=== PATIENT | male | born 1985 | race Caucasian/White ===

== ENCOUNTER 2021-09-14 16:20 | Inpatient (IN) | payer MEDICAID ==
[~2021-09-14] VITALS: Ht 170.2 cm; Wt 64.9 kg
[2021-09-14] MEDS ORDERED: ONDANSETRON HCL/PF 4 MG/2 ML VIAL ONE (16:48)
[2021-09-14] MEDS ORDERED: KETOROLAC TROMETHAMINE 15 MG/ML VIAL ONE (16:48)
[2021-09-14] MEDS ORDERED: ACETAMINOPHEN ES 500 MG TABLET ONE (16:48)
--- NOTE | 2021-09-14 16:53 | NUR ---
MOVE SHEET SUBMITTED AND CALLED FOR MS BED.
[2021-09-14] MEDS ORDERED: IV NS 0.9% 1,000 ML BAG IV ONE (17:00)
[2021-09-14] MEDS ORDERED: KETOROLAC TROMETHAMINE INJ 30 MG/ML VIAL IV ONE (17:00)
[2021-09-14] MEDS ORDERED: ACETAMINOPHEN ES 500 MG TABLET PO ONE (17:00)
[2021-09-14] MEDS ORDERED: PIPERACILLIN /TAZOBACTAM 3.375 G in IV D5W 50 ML IV ONE (17:00)
[2021-09-14] MEDS ORDERED: VANCOMYCIN 1 GM in IV D5W 250 ML IV ONE (17:00)
[2021-09-14] MEDS ORDERED: ONDANSETRON HCL/PF 4 MG/2 ML VIAL IVP ONE (17:00)
--- NOTE | 2021-09-14 17:00 | NUR ---
US AT BEDSIDE
--- NOTE | 2021-09-14 17:05 | NUR ---
COVID SWAB DONE AND SENT TO LAB
[2021-09-14 17:11] LABS: BASOPHILS % (AUTO) 0.1 % (0.0-2.0); HEMATOCRIT 34 % (39-51); HEMOGLOBIN 10.7 g/dL (13.5-17.5); LYMPHOCYTES # (AUTO) 0.8 K/uL (0.8-4.8); LYMPHOCYTES % (AUTO) 4.3 % (20.0-44.0); MEAN CORPUSCULAR HGB CONC 31 g/dl (31.0-36.0); MEAN CORPUSCULAR VOLUME 77 fL (80-96); MONOCYTES # (AUTO) 2.1 K/uL (0.1-1.30); MONOCYTES % (AUTO) 10.8 % (2.0-12.0); NEUTROPHILS # (AUTO) 16.7 K/uL (1.8-8.9); NEUTROPHILS % (AUTO) 84.8 % (43.0-81.0); PLATELET COUNT (AUTO) 348 K/uL (150-450); RED BLOOD CELL COUNT(AUTO) 4.48 MIL/uL (4.5-6.0); WHITE BLOOD COUNT (AUTO) 19.7 K/uL (4.3-11.0)
[2021-09-14 18:20] LABS: ALANINE AMINOTRANSFERASE 10 U/L (12-78); ALBUMIN 2.9 g/dL (3.4-5.0); ALKALINE PHOSPHATASE 107 U/L (46-116); ASPARTATE AMINOTRANSFERASE 13 U/L (15-37); BILIRUBIN,TOTAL 0.5 mg/dL (0.2-1.0); TOTAL PROTEIN, SERUM 8.4 g/dL (6.4-8.2)
[2021-09-14 18:54] LABS: BILIRUBIN,DIRECT 0.2 mg/dL (0.0-0.2)
[2021-09-14 19:04] LABS: CALCIUM, SERUM 8.8 mg/dL (8.5-10.1); CARBON DIOXIDE 21 mmol/L (21-32); CHLORIDE 93 mmol/L (98-107); CREATININE 0.9 mg/dL (0.6-1.3); GLUCOSE 112 mg/dL (74-106); POTASSIUM 3.8 mmol/L (3.5-5.1); SODIUM SERUM 127 mmol/L (136-145); UREA NITROGEN, BLOOD 14 mg/dL (7-18)
--- NOTE | 2021-09-14 19:12 | NUR ---
[facility] CALLED FILM PROCESSING SHIFT SUPERVISOR PAGED.
[2021-09-14] MEDS ORDERED: MAG HYDROX/AL HYDROX/SIMETH 30 ML UDC PO PRN (20:00)
[2021-09-14] MEDS ORDERED: MAGNESIUM HYDROXIDE 30 ML UDC PO PRN (20:00)
--- NOTE | 2021-09-14 20:27 | NUR ---
REPORT GIVEN MAYI VO FOR REID
--- NOTE | 2021-09-14 20:42 | NUR ---
PT TO UNIT ON GURNEY WITH EMT AT BEDSIDE ON STABLE CONDITION. NAD NOTED
--- NOTE | 2021-09-14 20:50 | NUR ---
MS RN RECIEVING NOTE PATIENT RECEIVED FROM ER VIA [facility]. PATIENT WAS ABLE TO AMBULATE FROM [facility] TO ASSIGNED BED. A/OX4. NO S/S OF DISTRESS, BREATHING UNLABORED ON RM AIR. RAC #18 INTACT AND PATENT. PATIENT STABLE. VS: BP 135/79; HR 84; T 98.7; O2 100%; R 18. PAIN NOTED 7/10. MORPHINE WILL BE GIVEN PER MD ORDER. ORIENTED TO RM AND UNIT; GIVEN CALL SINGLETARY AND INSTRUCTED ON USE; BELONGINGS ACCOUNTED FOR AND LOGGED INTO CHART. SAFETY MEASURES IN PLACE: BED AT LOWEST LEVEL, RAILS UP X3, CALL SINGLETARY WITHIN REACH. WILL CONTINUE TO MONITOR PATIENT.
[2021-09-14] MEDS: MORPHINE SULFATE INJ 2 MG/ML DISP.SYRIN IV PRN (21:32)
[2021-09-14] MEDS: ENOXAPARIN SODIUM 40 MG/0.4 ML DISP.SYRIN SQ SCH (21:34)
[2021-09-14 22:00] VITALS: BP 135/79
[2021-09-14] MEDS ORDERED: ZOLPIDEM TARTRATE 5 MG TABLET PO PRN (22:00)
[2021-09-14] MEDS: IV NS 0.9% 1,000 ML IV PRN (22:53)
[2021-09-15] MEDS: ZOSYN IVPB 3.375 G in IV D5W 50ml IV SCH ×5 (00:11→23:20)
[2021-09-15] MEDS: ACETAMINOPHEN 325 MG TABLET PO PRN ×3 (00:20→15:08)
[2021-09-15] MEDS: VANCOMYCIN 1 GM in IV D5W 250ml IV SCH ×3 (02:22→18:38)
--- NOTE | 2021-09-15 02:31 | NUR ---
RN NOTE PATIENT HAD A TEMP OF 103.0 @0019. PATIENT INITIALLY DID NOT HAVE AN ELEVATED/ABNORMAL TEMP UPON ARRIVAL TO THE UNIT. PATIENT HAD STATED EARLIER THAT HE WAS COLD AND WANTED SEVERAL WARM BLANKETS AND THE HEAT ON. THEREFORE, AT 0019 I REMOVED SOME OF THE BLANKETS, TURNED OFF THE HEAT, AND GAVE HIM TYLENOL PER eMAR ORDER. AT 0122 PATIENT'S TEMP DROPPED TO 102.2. I PLACED ICE PACKS UNDER EACH ARM. AT 0228 HIS TEMP WAS 99.5. PATIENT DOES HAVE CELLULITIS AND IS RECEIVING ANTIBIOTICS (ZOSYN & VANCO). PATIENT IS STABLE AND COMFORTABLE. WILL CONTINUE TO MONITOR PATIENT.
--- NOTE | 2021-09-15 03:35 | NUR ---
RN NOTE PATIENT'S TEMP RE-CHECKED AGAIN. PATIENT'S CURRENT TEMP IS 98.6. PATIENT COMFORTABLE AND STABLE; WILL CONTINUE TO MONITOR PATIENT.
[2021-09-15] MEDS: MORPHINE SULFATE INJ 2 MG/ML DISP.SYRIN IV PRN ×4 (06:34→20:56)
--- NOTE | 2021-09-15 06:45 | NUR ---
MS RN CLOSING NOTE PATIENT IS AWAKE IN BED. A/OX4. NO S/S OF DISTRESS, BREATHING W/O DIFFICULTY ON RM AIR. RAC #18 INTACT AND PATENT W/ NS 75ML/HR. ALL PAIN NEEDS ATTENDED TO BY MD ORDER. SAFETY MEASURES IN PLACE: BED AT LOWEST POSITION, LOCKED, RAILS UP X3, CALL SINGLETARY WITHIN REACH. WILL ENDORSE TO NEXT SHIFT FOR REID.
[2021-09-15 07:26] LABS: BASOPHILS # (AUTO) 0.1 K/uL (0.0-0.2); BASOPHILS % (AUTO) 0.3 % (0.0-2.0); HEMATOCRIT 32 % (39-51); HEMOGLOBIN 10.1 g/dL (13.5-17.5); LYMPHOCYTES # (AUTO) 0.9 K/uL (0.8-4.8); LYMPHOCYTES % (AUTO) 4.8 % (20.0-44.0); MEAN CORPUSCULAR HGB CONC 31 g/dl (31.0-36.0); MEAN CORPUSCULAR VOLUME 76 fL (80-96); MONOCYTES % (AUTO) 10.3 % (2.0-12.0); NEUTROPHILS # (AUTO) 16.3 K/uL (1.8-8.9); NEUTROPHILS % (AUTO) 84.6 % (43.0-81.0); PLATELET COUNT (AUTO) 308 K/uL (150-450); RED BLOOD CELL COUNT(AUTO) 4.24 MIL/uL (4.5-6.0); WHITE BLOOD COUNT (AUTO) 19.2 K/uL (4.3-11.0)
--- NOTE | 2021-09-15 07:30 | NUR ---
RN OPENING NOTES RECEIVED PATIENT IN BED, AWAKE, A/O X4, VERBALLY RESPONSIVE. NI SIGNS OF ACUTE DISTRESS NOTED. ON ROOM AIR, NO SOB NOTED, BREATHING EVEN AND UNLABORED. NOTED WITH IV ACCESS ON RIGHT AC #18G, INTACT AND PATENT WITH NS @75ML/HR RUNNING. SAFETY MEASURES IN PLACE. BED LOCKED AND IN LOWEST POSITION, SR UP, CALL LIGHT AND TABLE PLACED WITHIN EASY REACH. WILL CONTINUE TO MONITOR PATIENT.
[2021-09-15 07:50] LABS: ALANINE AMINOTRANSFERASE < 6 U/L (12-78); ALBUMIN 2.2 g/dL (3.4-5.0); ALKALINE PHOSPHATASE 98 U/L (46-116); ASPARTATE AMINOTRANSFERASE 7 U/L (15-37); BILIRUBIN,TOTAL 0.5 mg/dL (0.2-1.0); CARBON DIOXIDE 21 mmol/L (21-32); CHLORIDE 98 mmol/L (98-107); CREATININE 0.8 mg/dL (0.6-1.3); GLUCOSE 91 mg/dL (74-106); MAGNESIUM 2.4 mg/dL (1.8-2.4); POTASSIUM 3.6 mmol/L (3.5-5.1); SODIUM SERUM 129 mmol/L (136-145); TOTAL PROTEIN, SERUM 6.9 g/dL (6.4-8.2); UREA NITROGEN, BLOOD 11 mg/dL (7-18)
[2021-09-15] MEDS: PANTOPRAZOLE 40 MG TABLET.DR PO SCH (07:54)
[2021-09-15 08:00] VITALS: BP 126/73
--- NOTE | 2021-09-15 08:28 | NUR ---
WOUND CARE CONSULT: PT PRESENTS WITH RT INDEX FINGER CRUSTED WOUND WITH PURULENT DRAINAGE WELL DRY SCABS ON FACE AND OPEN AREA TO TOP OF LEFT EAR, PRESENT ON ADMISSION. RECOMMENDATIONS MADE FOR SKIN PROTECTION AND WOUND CARE. DISCUSSED WITH NURSING STAFF. MD IN AGREEMENT WITH PLAN OF CARE.
[2021-09-15] MEDS ORDERED: Z GUARD REMEDY 4 OZ OINT TP PRN (09:00)
[2021-09-15] MEDS: NEOMY SULF/BACITRAC ZN/POLY 15 GM TUBE TP SCH ×2 (09:28→16:17)
[2021-09-15] MEDS: ONDANSETRON HCL/PF 4 MG/2 ML VIAL IVP PRN (12:25)
--- NOTE | 2021-09-15 13:20 | NUR ---
"SS Consult: SS consult for homelessness. Pt. Is a 36-year-old White male who demonstrates adequate insight to the reason for hospitalization. Per pt., he/ presented himself to hospital for left arm pain, swelling and erythema. Pt. was oriented x3, alert, and hardly cooperative. During interview, pt. was capable of following directions, made appropriate eye-contact, and appeared unkempt. Pt.s speech was at a low rate and pt.s mood was elevated. Pt. reported no hx of mental health, substance abuse, denies suicidal ideation, or homicidal ideation. Pt. denies auditory hallucinations, visual hallucinations, paranoia, or delusions. Per EMR, pt. is positive for Amphetamine and Cannabinoids. SW explored pt.s living situation. Per pt., he is homeless. Pt. never been to shelters and stated that he does not want to. Pt. speaks to his sister, but he cannot stay with her. SW offered [facility] resources and pt. accepted. Pt. did not want to answer any further questions. Plan: SW provided available resources and pt. accepted. Upon discharge, pt. stated that he is still deciding on where to go. Pt. refused to sign homeless waiver at the time, SW placed waiver in chart. Resources Provided: Winter Shelters: SPA 2 | [facility]: [facility] Address: Confidential (call for location ) Population Served: Coed # of Beds: 57 SPA 4 | [facility] Provider: [facility] Last Address: [address] [address] # of Beds: 49 Population Served: Coed SPA 6 | [facility] Provider: Home [facility] Last Address: [address] [address] # of Beds: 49 Population Served: Vivianad [facility] Provider: Maci Valentin AKYoni Address: [address] [facility] [address] # of Beds: 20 Population Served: Women [facility] Facility Provider: Home at Last Address: [address] [facility] [address] # of Beds: 30 Population Served: [facility] SPA 8 | [facility] Provider: [facility] [place] Address: [address] [facility] [address] # of Beds: 65 Population Served: Coed Year-round shelters: [facility] [place] [address] [place] [address] ; [facility] [place] [address] [place] [address]; [facility] [address] [facility] [address] Winter Shelters: [facility] Provider: [facility] [place] Address: [address] [place], [address] # of Beds: 47 Population Served: Coed [facility] 6 | [facility] Gisselle Bryant [place] Provider: Home at Last Address: [address] [place] [address], [address] # of Beds: 66 Population Served: [place] Provider: [facility] Address: [address] [facility], [address] # of Beds: 56 Population Served: [facility] [place] Provider: /[facility] Address: [address] [facility], [address] # of Beds: 49 Population Served: Coed SPA 8 | [facility] Provider: [facility] Serve Address: [address] [facility], [address] # of Beds: 37 Population Served: Coed Hygiene: [facility] [facility]: [address] [place] ; [facility] [address] [facility] ; [facility] [address] . Food Resources: [place] [facility] at [facility]- [address]; Meet Each Need with Dignity ([facility]) [address] [address]; [facility] Food Pantry [address] [facility]; [facility] [address] [place] Zoraida Lorenzo. Mental Health resources provided: [facility] [address] [place] [address] ; [facility] [address] [facility] [address], [place] [address] ; [facility] [address] [facility] [place] [address] ; [facility] [address] [place], [place] [id number] Healthcare Clinics: [facility] [address] [facility], [address] [place]. [place] ; [facility] [address] [facility] [address] [place] [address]; [facility] [address] [facility]. [place] [phone] Counseling--Outpatient [facility] [address] [facility], [place] [address] (Specializes in in-depth psychotherapy for emotional distress: anxiety, depression, interpersonal conflicts, life transitions, childhood abuse) [facility] [address] [place] [address] (Assist with solving problem marital difficulties, separation & divorce, aging parents, & grief, chronic & terminal illness) [facility] [address] [place] [address] (Deal with loss & grief, anxiety, marital difficulties) Homebound/Mental Health Services [address] [facility], [address] [place], [place] [address] (Provide in-home mental services to people who are incapable of leaving their homes) [facility]eds of the Elderly Senior Service/Resource Center [address] [place] [address] [facility] [address] [facility] [place] [address] PSYCHIATRIC OUTPATIENT SERVICES [facility] Partial Hospitalization and Intensive Outpatient Program (Managed Care and [place] Only)[address] [facility] [phone] [facility] Partial Hospitalization and Outpatient [address] [place], [place] [phone] [facility] [place] [address] [facility] [address] [place], [place] [phone] [facility] Partial Hospitalization and Outpatient [id number] eliGrace Medical CentertoyinRICHLAND, [phone] Substance Abuse resources provided included: [facility] Substance Abuse Self-Helpline ([facility]) ; CRI -HELP [address] [facility] [place] [address] ; [facility] [address] [facility] [address] ; [facility] [address] [address] ; [facility] [address] [facility] [phone] ; [facility] [address] [facility] [address] ; [facility] [address] [facility] [phone] ; [facility] Substance Abuse Helpline(SAS)-[facility] ; [facility] ; [facility] [place] [facility] Cash; [facility] [place]; [facility] [place] Add[place]ontoyin; [facility] [place]; [place] Patrice; [facility] Katy; [facility]. Shyanne Hernadez; Alcoholics Anonymous -[facility]; Maryana ; Marijuana Anonymous -[facility]V; Narcotics Anonymous www.na.org;"
--- NOTE | 2021-09-15 13:55 | NUR ---
RN NOTES PATIENT PICKED UP FOR MRI LEFT HUMERUS.
--- NOTE | 2021-09-15 14:20 | NUR ---
RN NOTES PATIENT BACK FROM MRI LEFT HUMERUS W/O CONTRAST. IN STABLE CONDITION.
[2021-09-15 16:00] VITALS: BP 131/59
--- NOTE | 2021-09-15 18:54 | NUR ---
RN CLOSING NOTES PATIENT IN BED, AWAKE, A/O X4, VERBALLY RESPONSIVE. NO SIGNS OF ACUTE DISTRESS NOTED. STABLE ON ROOM AIR, NO SOB NOTED, BREATHING EVEN AND UNLABORED. WITH IV ACCESS ON RIGHT AC #18G, INTACT AND PATENT WITH NS @75ML/HR RUNNING. SAFETY MEASURES IN PLACE. BED LOCKED AND IN LOWEST POSITION, SR UP, CALL LIGHT AND TABLE PLACED WITHIN EASY REACH. WILL ENDORSE TO NEXT SHIFT FOR CONTINUITY OF CARE.
--- NOTE | 2021-09-15 19:00 | NUR ---
RN NOTES HOSPITALIST CHARLES STEPHENS MADE AWARE REGARDING MRI RESULT OF LEFT UPPER EXTREMITY WITH ORDER FOR REPEAT VENOUS DUPLEX STUDY OF LEFT UPPER EXT, ORDER CARRIED OUT.
[2021-09-15 20:00] VITALS: BP_SYST 131; BP_SYST 156; BP_DIAS 71; BP_DIAS 75
--- NOTE | 2021-09-15 20:20 | NUR ---
RN OPENING NOTES RECEIVED PT IN BED, ASLEEP, AWAKENS TO VERBAL STIMULI. AOx4, ABLE TO MAKE NEEDS KNOWN. ON RA AND TOLERATING WELL. NO SOB NOTED NO S/SX OF RESPIRATORY DISTRES NOTED. IV ACCESS IN RAC #18 G RUNNING NS @ 75 ML/HR. SAFETY PRECAUTIONS IN PLACE: BED IN LOWEST, LOCKED POSITION, SIDERAILS UPx2, AND BRAKES ON. TABLE AND CALL LIGHT WITHIN REACH. WILL CONTINUE TO MONITOR.
[2021-09-15] MEDS: ENOXAPARIN SODIUM 40 MG/0.4 ML DISP.SYRIN SQ SCH (20:41)
[2021-09-15] MEDS: IV NS 0.9% 1,000 ML IV PRN (20:50)
--- NOTE | 2021-09-15 20:56 | NUR ---
ADMINISTERED FOR PAIN PER MD ORDER. VS WNL. WILL CONTINUE TO MONITOR. Addendum: 09/16/21 at 0036 by ZEESHAN BASILIO RN ADMINISTERED MORPHINE FOR PAIN.
[2021-09-16] MEDS: MORPHINE SULFATE INJ 2 MG/ML DISP.SYRIN IV PRN ×7 (00:35→17:45)
--- NOTE | 2021-09-16 00:36 | NUR ---
ADMINISTERED MORPHINE FOR PAIN PER MD ORDER. VS WNL. WILL CONTINUE TO MONITOR.
[2021-09-16] MEDS: VANCOMYCIN 1 GM in IV D5W 250ml IV SCH ×3 (02:23→18:33)
--- NOTE | 2021-09-16 03:24 | NUR ---
PT MOANING AND CRYING DUE TO PAIN. STATES PAIN IS 10/10. CONTACTED DR. MENDOZA FOR NEW MEDICATION UPDATE AND HE SAID TO CHANGE THE FREQUENCY FROM EVERY 4 HOURS TO EVERY 3 HOURS. ADMINSTERED MORPHINE @0317. VS WNL. WILL CONTINUE TO MONITOR.
[2021-09-16] MEDS: ZOSYN IVPB 3.375 G in IV D5W 50ml IV SCH ×4 (06:18→23:16)
--- NOTE | 2021-09-16 06:18 | NUR ---
ADMINISTERED MORPHINE PER MD ORDER. VS WNL. WILL CONTINUE TO MONITOR.
--- NOTE | 2021-09-16 06:38 | NUR ---
RN CLOSING NOTES PT IN BED, WITH EYES CLOSED, AWAKENS TO VERBAL STIMULI. AOx4, ABLE TO MAKE NEEDS KNOWN. ON RA AND TOLERATING WELL. NO SOB NOTED NO S/SX OF RESPIRATORY DISTRESS NOTED. IV ACCESS IN RAC #18 G RUNNING NS @ 75 ML/HR. ALL NEEDS MET. PT KEPT CLENA AND DRY. TREATED PAIN THROUGHOUT SHIFT. SAFETY PRECAUTIONS IN PLACE: BED IN LOWEST, LOCKED POSITION, SIDERAILS UPx2, AND BRAKES ON. TABLE AND CALL LIGHT WITHIN REACH. WILL ENDORSE TO ONCOMING SHIFT FOR REID.
[2021-09-16 07:05] LABS: CALCIUM, SERUM 7.7 mg/dL (8.5-10.1); CREATININE 0.8 mg/dL (0.6-1.3); POTASSIUM 3.6 mmol/L (3.5-5.1)
--- NOTE | 2021-09-16 07:30 | NUR ---
ms rn receiived on bed, awake,alert,oriented x4,not in any form of distress, respirations even and unlabored,no sob noted, cam in w/ dx of left arm cellulitis,noted to have a left swollen arm,denies pain at this time,all needs attended.
[2021-09-16 08:00] VITALS: BP 142/77
--- NOTE | 2021-09-16 08:00 | NUR ---
ms andujar breakfast served,due meds given,tolerated well.
[2021-09-16] MEDS: PANTOPRAZOLE 40 MG TABLET.DR PO SCH (08:58)
[2021-09-16] MEDS: NEOMY SULF/BACITRAC ZN/POLY 15 GM TUBE TP SCH ×2 (09:00→17:00)
[2021-09-16 16:00] VITALS: BP 129/72
--- NOTE | 2021-09-16 16:00 | NUR ---
ms rn duplex shows positive dvt at left arm, tamiko notified, w/ new orders made and carried out.
--- NOTE | 2021-09-16 18:30 | NUR ---
ms rn about to hang vanco, patient removed his iv heplock, patient endorsed to night monitor, all needs attended.
--- NOTE | 2021-09-16 19:30 | NUR ---
Patient is currently sleeping but easy to wake. alert and oriented x4. Was endorsed by last nurse that patient pulled out IV so will put in a new one once all other patients are checked on. L arm swollen and red kept elevated on pillow. L arm is painful per patient -will administered PRN pain medication as per order. Will continue to monitor patient.
[2021-09-16 20:00] VITALS: BP 147/82
[2021-09-16] MEDS: MORPHINE SULFATE INJ 4 MG/ML DISP.SYRIN IV PRN (21:00)
--- NOTE | 2021-09-16 21:41 | NUR ---
Blood cultures came back gram + cocci in chains. Alerted on-call and notified that patient was already on vanco and zosyn -NNO.
[2021-09-16] MEDS: IV NS 0.9% 1,000 ML IV PRN (22:06)
[2021-09-17] MEDS: MORPHINE SULFATE INJ 4 MG/ML DISP.SYRIN IV PRN ×5 (01:09→19:59)
[2021-09-17] MEDS: VANCOMYCIN 1 GM in IV D5W 250ml IV SCH ×3 (02:00→19:25)
[2021-09-17] MEDS: ZOSYN IVPB 3.375 G in IV D5W 50ml IV SCH ×3 (05:14→18:35)
--- NOTE | 2021-09-17 06:17 | NUR ---
RN CLOSING NOTES Patient is A&Ox4. Currently awake in bed watching TV. No signs of distress. Patient reports much better pain management/control with the new dose of morphine. RFA #20G intact and patent NS running at 75cc/hr. Tolerating IV ABX well, no adverse side effects. L arm kept elevated on pillow. Safety measures in place.
[2021-09-17] MEDS: PANTOPRAZOLE 40 MG TABLET.DR PO SCH (06:31)
[2021-09-17 07:28] LABS: BASOPHILS % (AUTO) 0.5 % (0.0-2.0); EOSINOPHILS % (AUTO) 2.5 % (0.0-6.0); HEMATOCRIT 30 % (39-51); HEMOGLOBIN 9.7 g/dL (13.5-17.5); LYMPHOCYTES # (AUTO) 1.3 K/uL (0.8-4.8); LYMPHOCYTES % (AUTO) 15.2 % (20.0-44.0); MEAN CORPUSCULAR HGB CONC 32 g/dl (31.0-36.0); MEAN CORPUSCULAR VOLUME 75 fL (80-96); MONOCYTES % (AUTO) 12.5 % (2.0-12.0); NEUTROPHILS # (AUTO) 5.8 K/uL (1.8-8.9); NEUTROPHILS % (AUTO) 69.3 % (43.0-81.0); PLATELET COUNT (AUTO) 377 K/uL (150-450); WHITE BLOOD COUNT (AUTO) 8.3 K/uL (4.3-11.0)
--- NOTE | 2021-09-17 08:03 | NUR ---
MS/RN OPENING NOTES: RECEIVED PATIENT IN BED; AWAKE, ALERT AND ORIENTED X3. ABLE TO MAKE NEEDS KNOWN. NO COMPLAINTS OF PAIN AND DISCOMFORT AT THIS TIME, ON ROOM AIR TOLERATING WELL. WITH IV ACCESS AT RFA #20G WITH RUNNING NS @75ML/HR. SAFETY MEASURES IN PLACED: BED LOCKED ON LOWEST POSITION, SIDE RAILS UPX2, CALL LIGHT WITHIN EASY REACH. WILL CONTINUE WITH THE PLAN OF CARE.
[2021-09-17 08:12] VITALS: BP 143/82
[2021-09-17 08:42] LABS: CALCIUM, SERUM 8.3 mg/dL (8.5-10.1); CREATININE 0.8 mg/dL (0.6-1.3)
[2021-09-17] MEDS: NEOMY SULF/BACITRAC ZN/POLY 15 GM TUBE TP SCH ×2 (09:52→17:50)
[2021-09-17] MEDS: APIXABAN 5 MG TABLET PO SCH ×2 (09:54→17:20)
--- NOTE | 2021-09-17 19:59 | NUR ---
RN NOTES : PT. C/O LEFT ARM PAIN 8/10 ADMINISTERED MORPHINE PER MD ORDER. VS WNL. WILL CONTINUE TO MONITOR.
[2021-09-17 20:00] VITALS: BP 151/86
[2021-09-17] MEDS ORDERED: CLINDAMYCIN 900 MG/6 ML VIAL ONE (21:33)
[2021-09-17] MEDS: CLINDAMYCIN 900 MG in IV D5W 50 ML IV SCH (21:38)
[2021-09-17] MEDS: IV NS 0.9% 1,000 ML IV PRN (21:46)
--- NOTE | 2021-09-17 22:31 | NUR ---
RN NOTES : PATIENT REFUSING SKIN ASSESSMENT AND PHOTOS TAKEN AT THIS TIME ,PATIENT ONLY WANTS MEDICATIONS IF NEEDED, PATIENT RE-EDUCATED ON COMPLIANCE .
[2021-09-18] MEDS: MORPHINE SULFATE INJ 4 MG/ML DISP.SYRIN IV PRN ×6 (00:03→20:56)
--- NOTE | 2021-09-18 00:03 | NUR ---
RN NOTES : PT. C/O LEFT ARM PAIN 9 ADMINISTERED MORPHINE PER MD ORDER. VS WNL. WILL CONTINUE TO MONITOR.
[2021-09-18] MEDS: ZOSYN IVPB 3.375 G in IV D5W 50ml IV SCH ×5 (00:06→23:53)
--- NOTE | 2021-09-18 04:07 | NUR ---
RN NOTES : PT. C/O LEFT ARM PAIN 9 ADMINISTERED MORPHINE PER MD ORDER. VS WNL. WILL CONTINUE TO MONITOR.
[2021-09-18] MEDS: CLINDAMYCIN 900 MG in IV D5W 50 ML IV SCH ×3 (05:11→20:47)
[2021-09-18 06:01] LABS: BASOPHILS # (AUTO) 0.1 K/uL (0.0-0.2); BASOPHILS % (AUTO) 0.9 % (0.0-2.0); EOSINOPHILS % (AUTO) 4.3 % (0.0-6.0); HEMATOCRIT 28 % (39-51); HEMOGLOBIN 9.3 g/dL (13.5-17.5); LYMPHOCYTES # (AUTO) 1.4 K/uL (0.8-4.8); LYMPHOCYTES % (AUTO) 16.9 % (20.0-44.0); MEAN CORPUSCULAR HGB CONC 33 g/dl (31.0-36.0); MEAN CORPUSCULAR VOLUME 75 fL (80-96); MONOCYTES # (AUTO) 1.1 K/uL (0.1-1.30); NEUTROPHILS # (AUTO) 5.3 K/uL (1.8-8.9); NEUTROPHILS % (AUTO) 64.9 % (43.0-81.0); PLATELET COUNT (AUTO) 418 K/uL (150-450); RED BLOOD CELL COUNT(AUTO) 3.79 MIL/uL (4.5-6.0); WHITE BLOOD COUNT (AUTO) 8.1 K/uL (4.3-11.0)
--- NOTE | 2021-09-18 06:33 | NUR ---
RN CLOSING NOTES PT. RESTING IN BED, ABLE TO MAKE NEEDS KNOWN. ON RA AND TOLERATING WELL. NO SOB NOTED NO S/SX OF RESPIRATORY DISTRESS NOTED. IV ACCESS INTACT RUNNING NS @ 75 ML/HR. ALL NEEDS MET. PT. KEPT CLEAN AND DRY. TREATED PAIN THROUGHOUT SHIFT. SAFETY PRECAUTIONS IN PLACED CALL LIGHT WITHIN REACH. WILL ENDORSE TO ONCOMING SHIFT FOR REID.
[2021-09-18 06:34] LABS: CALCIUM, SERUM 8.6 mg/dL (8.5-10.1); CREATININE 0.8 mg/dL (0.6-1.3); POTASSIUM 4.4 mmol/L (3.5-5.1)
--- NOTE | 2021-09-18 07:30 | NUR ---
MS RN OPENING NOTES RECEIVED PATIENT IN BED, AWAKE, ALERT AND ORIENTED X 4. ABLE TO MAKE NEEDS KNOWN. ON ROOM AIR TOLERATING WELL. NO COMPLAINTS OF PAIN AND DISCOMFORT AT THIS TIME. WITH IV ACCESS AT RFA G20 WITH IVF NS AT 75ML/HR INFUSING WELL. SAFETY MEASURES IN PLACED: BED LOCKED ON LOWEST POSITION, SIDE RAILS UPX2, CALL LIGHT WITHIN EASY REACH. WILL CONTINUE TO MONITOR THROUGHOUT THE SHIFT.
[2021-09-18 08:00] VITALS: BP 141/81
[2021-09-18] MEDS: PANTOPRAZOLE 40 MG TABLET.DR PO SCH (08:09)
[2021-09-18] MEDS: APIXABAN 5 MG TABLET PO SCH (08:10)
[2021-09-18] MEDS: NEOMY SULF/BACITRAC ZN/POLY 15 GM TUBE TP SCH ×2 (08:42→16:58)
[2021-09-18] MEDS: IV NS 0.9% 1,000 ML IV PRN (09:30)
--- NOTE | 2021-09-18 12:53 | NUR ---
SS Note: SW saw pt. last week for homelessness. SW followed-up with patient regarding shelters. Pt. is alert and oriented x3 and was hardly cooperative. Pt. stated that he has never been to a [facility] before but would like to go to one upon discharge. SW provided [facility] resources. Pt. signed homeless waiver and its placed in chart. Upon discharge, pt. would like a TAP card.
[2021-09-18] MEDS ORDERED: HEPARIN SODIUM, PORCINE 5000 UNITS/1 ML VIAL IV ONE ×3 (15:00→17:00)
[2021-09-18 16:00] VITALS: BP 149/81
[2021-09-18] MEDS: HEPARIN INFUSION/D5W 500 ML IV PRN (17:11)
[2021-09-18] MEDS: ONDANSETRON HCL/PF 4 MG/2 ML VIAL IVP PRN (17:26)
--- NOTE | 2021-09-18 18:46 | NUR ---
MS RN CLOSING NOTES PATIENT IN BED, AWAKE, ALERT AND ORIENTED X 4. ABLE TO MAKE NEEDS KNOWN. ON ROOM AIR TOLERATING WELL. NO COMPLAINTS OF PAIN AND DISCOMFORT AT THIS TIME. WITH IV ACCESS AT RIGHT FOREARM G20 WITH HEPARIN DRIP AT 1,250UNITS RUNNING AT 25ML/HR INFUSING WELL AND AT RIGHT FOREARM G20 SALINE LOCKED, PATENT AND INTACT. DUE MEDS GIVEN. SAFETY MEASURES IN PLACED: BED LOCKED ON LOWEST POSITION, SIDE RAILS UPX2, CALL LIGHT WITHIN EASY REACH. WILL ENDORSE TO NEXT SHIFT FOR REID.
--- NOTE | 2021-09-18 19:35 | NUR ---
MS RN OPENING NOTES PATIENT RECEIVED IN BED, RESTING IN BED. A/OX4; BREATHING EVEN AND UNLABORED; NO SOB NOTED; PATIENT TOLERATING ROOM AIR WELL; RFA #20, INTACT AND PATENT, FLUSHING WELL; TOLERATING IVF WELL; NO S/S OF REDNESS OR INFILTRATION; SAFETY PRECAUTIONS IMPLEMENTED; BED LOCKED IN LOW POSITION; SIDE RAILSX2; CALL LIGHT WITHIN REACH; WILL CONT PLAN OF CARE
[2021-09-18 20:00] VITALS: BP 171/74
--- NOTE | 2021-09-18 20:00 | NUR ---
MS RN NOTES PATIENT CURRENTLY ON HEPARIN DRIP, RUNNING 25ML/HR, NEXT PT DUE AT 2330; WILL AWAIT LABS. CHARGE NURSE AWARE
--- NOTE | 2021-09-18 23:33 | NUR ---
MS RN NOTES SPORTS BETTING MANAGER AT BEDSIDE
[2021-09-19] MEDS: MORPHINE SULFATE INJ 4 MG/ML DISP.SYRIN IV PRN ×6 (01:12→21:43)
[2021-09-19] MEDS ORDERED: HEPARIN SODIUM, PORCINE 5000 UNITS/1 ML VIAL IV ONE (02:30)
--- NOTE | 2021-09-19 02:30 | NUR ---
MS RN NOTES APTT RESULTED, 39.5, PROTOCOL FOLLOWED, WITNESSED BY CHARGE NURSE AND CO-SIGNED BY MAYI STRAUSS; WILL CONT TO MONITOR AND CONT PLAN OF CARE
[2021-09-19] MEDS: IV NS 0.9% 1,000 ML IV PRN (04:22)
[2021-09-19] MEDS: CLINDAMYCIN 900 MG in IV D5W 50 ML IV SCH ×3 (04:24→20:34)
[2021-09-19] MEDS: ZOSYN IVPB 3.375 G in IV D5W 50ml IV SCH ×4 (05:19→23:34)
--- NOTE | 2021-09-19 06:37 | NUR ---
MS RN CLOSING NOTES PATIENT RECEIVED IN BED, RESTING IN BED. A/OX4; BREATHING EVEN AND UNLABORED; NO SOB NOTED; PATIENT TOLERATING ROOM AIR WELL; RFA #20, INTACT AND PATENT, FLUSHING WELL; TOLERATING IVF WELL; PATIENT ON HEPARIN DRIP, NEXT APTT 0830; WILL INFORM DAY SHIFT; NO S/S OF REDNESS OR INFILTRATION; ALL NEEDS RENDERED; SAFETY PRECAUTIONS IMPLEMENTED; BED LOCKED IN LOW POSITION; SIDE RAILSX2; CALL LIGHT WITHIN REACH; WILL ENDORSE REID TO ONCOMING SHIFT
[2021-09-19 07:06] LABS: CALCIUM, SERUM 8.4 mg/dL (8.5-10.1); CREATININE 0.8 mg/dL (0.6-1.3); MAGNESIUM 2.1 mg/dL (1.8-2.4); PHOSPHORUS 4.7 mg/dL (2.5-4.9); POTASSIUM 4.3 mmol/L (3.5-5.1)
--- NOTE | 2021-09-19 07:30 | NUR ---
MS RN OPENING NOTES RECEIVED PATIENT IN BED AWAKE AND A/OX4; BREATHING EVEN AND UNLABORED; NO SOB NOTED; PATIENT TOLERATING ROOM AIR WELL; RFA #20, INTACT AND PATENT, FLUSHING WELL; TOLERATING IVF WELL; PATIENT ON HEPARIN DRIP AT 1400U/HR INFUSING WELL; NO S/S OF REDNESS OR INFILTRATION; SAFETY PRECAUTIONS IMPLEMENTED; BED LOCKED IN LOW POSITION; SIDE RAILSX2; CALL LIGHT WITHIN REACH; WILL CONTINUE TO MONITOR.
[2021-09-19 07:33] LABS: BASOPHILS # (AUTO) 0.1 K/uL (0.0-0.2); BASOPHILS % (AUTO) 1.1 % (0.0-2.0); HEMATOCRIT 28 % (39-51); HEMOGLOBIN 8.9 g/dL (13.5-17.5); LYMPHOCYTES % (AUTO) 26.1 % (20.0-44.0); MEAN CORPUSCULAR HGB CONC 32 g/dl (31.0-36.0); MEAN CORPUSCULAR VOLUME 75 fL (80-96); MONOCYTES # (AUTO) 0.7 K/uL (0.1-1.30); MONOCYTES % (AUTO) 8.9 % (2.0-12.0); NEUTROPHILS # (AUTO) 4.6 K/uL (1.8-8.9); NEUTROPHILS % (AUTO) 58.9 % (43.0-81.0); PLATELET COUNT (AUTO) 501 K/uL (150-450); RED BLOOD CELL COUNT(AUTO) 3.68 MIL/uL (4.5-6.0); WHITE BLOOD COUNT (AUTO) 7.8 K/uL (4.3-11.0)
[2021-09-19 08:00] VITALS: BP 134/72
[2021-09-19] MEDS: PANTOPRAZOLE 40 MG TABLET.DR PO SCH (08:18)
[2021-09-19] MEDS: NEOMY SULF/BACITRAC ZN/POLY 15 GM TUBE TP SCH ×2 (08:21→16:13)
[2021-09-19] MEDS: HEPARIN INFUSION/D5W 500 ML IV PRN (12:10)
[2021-09-19 16:00] VITALS: BP 142/74
--- NOTE | 2021-09-19 18:42 | NUR ---
MS RN CLOSING NOTES PATIENT IN BED AWAKE AND A/OX4; BREATHING EVEN AND UNLABORED; NO SOB NOTED; PATIENT TOLERATING ROOM AIR WELL; RFA #20, INTACT AND PATENT, FLUSHING WELL; TOLERATING IVF WELL; PATIENT ON HEPARIN DRIP AT 1400U/HR INFUSING WELL; NO S/S OF REDNESS OR INFILTRATION; DUE MEDS GIVEN. SAFETY PRECAUTIONS IMPLEMENTED; BED LOCKED IN LOW POSITION; SIDE RAILSX2; CALL LIGHT WITHIN REACH; WILL ENDORSE TO NEXT SHIFT FOR REID.
--- NOTE | 2021-09-19 19:41 | NUR ---
MS RN OPENING NOTES PATIENT IN BED AWAKE AND A/OX4; BREATHING EVEN AND UNLABORED; NO SOB NOTED; PATIENT TOLERATING ROOM AIR WELL; RFA #20, INTACT AND PATENT, FLUSHING WELL; TOLERATING IVF WELL; PATIENT ON HEPARIN DRIP AT 1400U/HR INFUSING WELL; NO S/S OF REDNESS OR INFILTRATION NOTED. SAFETY PRECAUTIONS IMPLEMENTED; BED LOCKED IN LOW POSITION; SIDE RAILSX2; CALL LIGHT WITHIN REACH; WILL CONTINUE TO MONITOR.
[2021-09-19 20:00] VITALS: BP 164/71
--- NOTE | 2021-09-19 22:09 | NUR ---
MS RN NOTES PRN MORPHINE GIVEN FOR PAIN 9/10 IN A NUMERIC PAIN SCALE. TOLERATED WELL. ALL NEEDS ATTENDED TO AT THIS TIME. WILL CONTINUE TO MONITOR.
[2021-09-20] MEDS: MORPHINE SULFATE INJ 4 MG/ML DISP.SYRIN IV PRN ×5 (02:29→19:47)
--- NOTE | 2021-09-20 02:33 | NUR ---
MS RN NOTES PRN MORPHINE GIVEN FOR 02/17 PAIN TOLERATED WELL. WILL OCNTINUE TO MONITOR. ALL NEEDS MET AT THIS TIME.
[2021-09-20] MEDS: CLINDAMYCIN 900 MG in IV D5W 50 ML IV SCH ×2 (05:23→13:38)
[2021-09-20] MEDS: HEPARIN INFUSION/D5W 500 ML IV PRN ×2 (05:30→23:37)
[2021-09-20] MEDS: ZOSYN IVPB 3.375 G in IV D5W 50ml IV SCH ×3 (05:58→17:26)
[2021-09-20 06:22] LABS: CALCIUM, SERUM 8.9 mg/dL (8.5-10.1); CREATININE 0.8 mg/dL (0.6-1.3); MAGNESIUM 2.4 mg/dL (1.8-2.4); PHOSPHORUS 4.5 mg/dL (2.5-4.9); POTASSIUM 4.4 mmol/L (3.5-5.1)
[2021-09-20 06:28] LABS: BASOPHILS # (AUTO) 0.1 K/uL (0.0-0.2); BASOPHILS % (AUTO) 1.1 % (0.0-2.0); EOSINOPHILS % (AUTO) 4.3 % (0.0-6.0); HEMATOCRIT 28 % (39-51); HEMOGLOBIN 9.1 g/dL (13.5-17.5); LYMPHOCYTES % (AUTO) 26.1 % (20.0-44.0); MEAN CORPUSCULAR HGB CONC 33 g/dl (31.0-36.0); MEAN CORPUSCULAR VOLUME 74 fL (80-96); MONOCYTES # (AUTO) 0.6 K/uL (0.1-1.30); MONOCYTES % (AUTO) 7.6 % (2.0-12.0); NEUTROPHILS # (AUTO) 4.6 K/uL (1.8-8.9); NEUTROPHILS % (AUTO) 60.9 % (43.0-81.0); PLATELET COUNT (AUTO) 576 K/uL (150-450); RED BLOOD CELL COUNT(AUTO) 3.75 MIL/uL (4.5-6.0); WHITE BLOOD COUNT (AUTO) 7.5 K/uL (4.3-11.0)
--- NOTE | 2021-09-20 06:34 | NUR ---
MS RN CLOSING NOTES PATIENT IN BED AWAKE AND A/OX4; BREATHING EVEN AND UNLABORED,NO SOB NOTED; PATIENT TOLERATING ROOM AIR WELL,RFA #20, INTACT AND PATENT, FLUSHING WELL,TOLERATING IVF WELL; PATIENT ON HEPARIN DRIP AT 1400U/HR INFUSING WELL,NO S/S OF REDNESS OR INFILTRATION NOTED. SAFETY PRECAUTIONS IMPLEMENTED; BED LOCKED IN LOW POSITION; SIDE RAILSX2; CALL LIGHT WITHIN REACH,ALL NURSING NEEDS MET AT ALL TIMES. ALL DUE MEDS GIVEN AND TOLERATED WELL.WILL CONTINUE TO MONITOR.
--- NOTE | 2021-09-20 06:34 | NUR ---
MS RN NOTES PRN MORPHINE GIVEN FOR 02/17 PAIN TOLERATED WELL. WILL CONTINUE TO MONITOR. ALL NEEDS MET AT THIS TIME.
--- NOTE | 2021-09-20 07:44 | NUR ---
RN OPENING NOTES Patient seen comfortably lying in bed, no apparent distress noted, respirations even and unlabored, no shortness of breath, denies any pain or discomfort at this time, no grimacing. Call light left within reach, safety precautions in place, brakes locked, side rails up X 2, will monitor closely for any changes.
[2021-09-20 08:00] VITALS: BP 144/88
--- NOTE | 2021-09-20 08:39 | NUR ---
patients aPTT level today resulted to 43.9. Patient seen comfortably lying in bed, no apparent distress noted, no s/s of bleeding, no unusual bleeding noted, will continue to monitor for any changes. IV site for heparin drip intact and patent, no s/s of infiltration noted, no swelling, no redness. Heparin drip running at 1400units/hour (28ml/hr), aPTT ordered for 09/21/21, patient tolerating rate, no apparent distress noted, call light left within reach, will monitor closely for any changes.
[2021-09-20] MEDS: IV NS 0.9% 1,000 ML IV PRN (08:57)
[2021-09-20] MEDS: PANTOPRAZOLE 40 MG TABLET.DR PO SCH (08:57)
[2021-09-20] MEDS: NEOMY SULF/BACITRAC ZN/POLY 15 GM TUBE TP SCH ×2 (09:16→17:35)
[2021-09-20 16:00] VITALS: BP 138/87
[2021-09-20] MEDS ORDERED: CEFTRIAXONE 2 G in IV D5W 100 ML IV SCH (18:30)
--- NOTE | 2021-09-20 19:57 | NUR ---
RN CLOSING NOTES Patient lying in bed, respirations even and unlabored, no shortness of breath, no grimacing, no apparent distress noted, remained afebrile. All due medications given per MD order, and tolerated well. Pain medication given as needed per MD order when non pharmacological measures ineffective. Patient has orders for IV fluids for hydration (0.9NS at 75ml/hr) running on his peripheral IV line on his right wrist, site remained patent, intact, flushing well, covered with dry dressings, no swelling, no redness, no c/o pain or discomfort at site. Patient also on heparin drip (1400units/hr) running on his peripheral IV line on his right forearm, site remained patent, intact, flushing well, covered with dry dressings, no swelling, no redness, no c/o pain or discomfort at site, no bleeding, no unusual bruising, no hematuria, no bleeding gums noted during shift. All needs anticipated, kept clean and dry, aspiration precautions observed at all times, kept head of bed elevated, safety precautions in place, frequent visual checks rendered, frequent turning and repositioning done, side rails up X 2, brakes locked, call light left within reach, will endorse to next shift for continuity of care.
[2021-09-20 20:00] VITALS: BP 165/78
[2021-09-21] MEDS: MORPHINE SULFATE INJ 4 MG/ML DISP.SYRIN IV PRN ×2 (00:01→04:08)
[2021-09-21] MEDS: IV NS 0.9% 1,000 ML IV PRN ×2 (01:17→15:06)
--- NOTE | 2021-09-21 07:01 | NUR ---
RN CLOSING NOTES Patient is A&Ox4. c/o LUE pain several times though relieved by PRN morphine. RFA #20G is patent intact and has heparin drip running at 1400units and 28ml/hr. R wrist #20G NS running at 75ml/hr. aPTT drawn at 0500. No s/s of bleeding. Currently awake in bed at this time watching TV. No signs of distress.
--- NOTE | 2021-09-21 07:15 | NUR ---
MS RN OPENING NOTES RECEIVED PATIENT AWAKE IN BED WATCHING TV.A/OX4. ABLE TO MAKE NEEDS KNOWN, DENIES PAIN OR ANY DISCOMFORTS VOICED AT THIS TIME. ON ROOM AIR, BREATHING EVEN AND UNLABORED, NO SOB NOTED. PT ON HEPARIN DRIP AT 1400U/HR ( 28ML/HR) INFUSING WELL TO RFA G#20 IV ACCESS. PT ALSO HAS IVF OF NS @ 75ML/HR ONGOING TO RIGHT WRIST G#20 IV ACCESS. SAFETY PRECAUTIONS IN PLACE: BED LOCKED IN LOW POSITION, SIDE RAILS UP X2, CALL LIGHT AND TRAY TABLE WITHIN REACH OF PT. WILL CONTINUE TO MONITOR PT.
[2021-09-21 08:00] VITALS: BP 150/98
[2021-09-21 08:09] LABS: CALCIUM, SERUM 8.9 mg/dL (8.5-10.1); CREATININE 0.7 mg/dL (0.6-1.3); MAGNESIUM 2.2 mg/dL (1.8-2.4); PHOSPHORUS 4.8 mg/dL (2.5-4.9); POTASSIUM 4.3 mmol/L (3.5-5.1)
[2021-09-21 08:10] LABS: BASOPHILS % (AUTO) 0.7 % (0.0-2.0); EOSINOPHILS % (AUTO) 4.2 % (0.0-6.0); HEMATOCRIT 28 % (39-51); LYMPHOCYTES # (AUTO) 2.2 K/uL (0.8-4.8); LYMPHOCYTES % (AUTO) 33.9 % (20.0-44.0); MEAN CORPUSCULAR HGB CONC 32 g/dl (31.0-36.0); MEAN CORPUSCULAR VOLUME 76 fL (80-96); MONOCYTES # (AUTO) 0.5 K/uL (0.1-1.30); MONOCYTES % (AUTO) 7.4 % (2.0-12.0); NEUTROPHILS # (AUTO) 3.6 K/uL (1.8-8.9); NEUTROPHILS % (AUTO) 53.8 % (43.0-81.0); PLATELET COUNT (AUTO) 569 K/uL (150-450); RED BLOOD CELL COUNT(AUTO) 3.67 MIL/uL (4.5-6.0); WHITE BLOOD COUNT (AUTO) 6.6 K/uL (4.3-11.0)
[2021-09-21] MEDS: PANTOPRAZOLE 40 MG TABLET.DR PO SCH (08:17)
--- NOTE | 2021-09-21 08:44 | NUR ---
RN NOTES PT SEEN BY DR DWYER WITH ORDER TO D/C MORPHINE IV 4MG Q4HR PRN AND ADMINISTER DILAUDID 2MG IV Q3HRS PRN.
--- NOTE | 2021-09-21 09:00 | NUR ---
RN NOTES LATEST APTT RESULTS THIS MORNING 44.2. BOLUS OF 2800 UNITS WILL BE ADMINISTERED AND HEPARIN DRIP WILL INCREASE FROM 1400 U/H TO 1550 U/H ( 31ML/HR) PER PROTOCOL. NEXT APTT WILL BE 1455 THIS AFTERNOON. WILL CONTINUE TO MONITOR.
[2021-09-21] MEDS: HEPARIN INFUSION/D5W 500 ML IV PRN (09:04)
[2021-09-21] MEDS: HYDROMORPHONE INJ 2 MG/ML DISP.SYRIN IV PRN ×4 (09:17→19:34)
--- NOTE | 2021-09-21 09:18 | NUR ---
RN NOTES: PT COMPLAINED OF THROBBING PAIN ON THE LEFT UPPER ARM WITH PAIN SCALE LEVEL OF 10/10. DILAUDID 2MG IVP GIVEN ORDERED PRN AT 0917. WILL MONITOR AND REASSESS PT.
[2021-09-21] MEDS: NEOMY SULF/BACITRAC ZN/POLY 15 GM TUBE TP SCH ×2 (09:22→17:38)
[2021-09-21] MEDS ORDERED: HEPARIN SODIUM, PORCINE 5000 UNITS/1 ML VIAL IV ONE (09:30)
--- NOTE | 2021-09-21 12:31 | NUR ---
RN NOTES: PT COMPLAINED OF THROBBING PAIN ON THE LEFT UPPER ARM WITH PAIN SCALE LEVEL OF 9/10. DILAUDID 2MG IVP GIVEN ORDERED PRN AT 1230. WILL MONITOR AND REASSESS PT.
[2021-09-21 16:00] VITALS: BP 146/87
--- NOTE | 2021-09-21 16:01 | NUR ---
RN NOTES BLOOD DRAWN FOR APTT DONE AT 1455 BUT RECEIVED CALL FROM LAB THAT PT 'S BLOOD WAS CLOTTED. ORDERED STAT APTT AND CALLED LAB AND STATED THAT THEY WILL COME NOW.
--- NOTE | 2021-09-21 16:33 | NUR ---
RN NOTES: PT COMPLAINED OF THROBBING PAIN ON THE LEFT UPPER ARM WITH PAIN SCALE LEVEL OF 9/10. DILAUDID 2MG IVP GIVEN ORDERED PRN AT 1632. WILL MONITOR AND REASSESS PT.
[2021-09-21] MEDS: ONDANSETRON HCL/PF 4 MG/2 ML VIAL IVP PRN (16:40)
--- NOTE | 2021-09-21 17:34 | NUR ---
RN NOTES RECEIVED CALL FROM [employer] THAT PT'S BLOOD DRAWN FOR SECOND TIME WAS CLOTTED AGAIN , STAT APTT ORDERED AGAIN.
[2021-09-21] MEDS ORDERED: VANCOMYCIN 1.25 GM in IV D5W 250 ML IV ONE (18:00)
[2021-09-21] MEDS ORDERED: PIPERACILLIN /TAZOBACTAM 4.5 G in IV D5W 50 ML IV SCH (18:00)
--- NOTE | 2021-09-21 18:24 | NUR ---
RN NOTES PT FOR TRANSFER TO [facility] FOR HIGHER LEVEL OF CARE TONFREDIS. CALLED AND REPORT GIVEN TO MAYI ROSE AND VERBALIZED UNDERSTANDING. HE STATED THAT PT WILL BE UNDER TOM FUENTES NP
--- NOTE | 2021-09-21 18:57 | NUR ---
RN NOTES APTT RESULTS STILL PENDING AT THIS TIME. WILL ENDORSE.
--- NOTE | 2021-09-21 18:59 | NUR ---
MS RN CLOSING NOTES PT IN BED AWAKE AND WATCHING TV AT THIS TIME. A/OX4. ABLE TO MAKE NEEDS KNOWN. ON ROOM AIR, BREATHING EVEN AND UNLABORED, NO SOB NOTED. PT ON HEPARIN DRIP AT 1550 U/HR (31ML/HR) INFUSING WELL TO RFA G#20 IV ACCESS AT THIS TIME, LATEST RESULTS OF PTT STILL PENDING. PT ALSO HAS IVF OF NS @ 75ML/HR ONGOING TO RIGHT WRIST G#20 IV ACCESS. ALL NEEDS AND CARE ATTENDED WELL. SAFETY MEASURES KEPT IN PLACE: BED IN LOWEST AND LOCKED POSITION, SIDE RAILS UPX2, CALL LIGHT WITHIN EASY REACH. PT FOR TRANSFER TO [facility] FOR HLOC. WILL ENDORSE PLAN OF CARE TO CHIEF OPTOMETRY SERVICE NURSE.
--- NOTE | 2021-09-21 19:10 | NUR ---
MS/RN OPENING NOTE RECEIVED PATIENT RESTING IN BED. AWAKE, ALERT AND ORIENTED X 4. ABLE TO MAKE NEEDS KNOWN. C/O PAIN TO LUE 12/17 - WILL ADMINISTER PRN PAIN MEDICATION PER MD ORDER. CONTINUES ON ROOM AIR WITH NO S/SX OF RESPIRATORY DISTRESS NOTED. IV ACCESS TO RIGHT FOREARM #20G AND RIGHT WRIST #20G BOTH INTACT AND PATENT. CONTINUES ON IVF NS @ 75ML/HR. CONTINUES ON HEPARIN DRIP RUNNING AT 1550U/HR WITH CURRENT PTT RESULT PENDING. CONTINUES ON IV ABX. PATIENT IS AMBULATORY WITH STEADY GAIT. PENDING TRANSFER TO [facility]. CALL LIGHT WITHIN REACH. ASPIRATION, FALL AND SAFETY PRECAUTIONS MAINTAINED. WILL CONTINUE TO MONITOR.
--- NOTE | 2021-09-21 19:18 | NUR ---
RN NOTES APTT STILL PENDING AT THIS TIME, ENDORSED TO NIGHT MAYI LAZARO.
--- NOTE | 2021-09-21 20:00 | NUR ---
MS/RN NOTE PATIENT IS BEING TRANSFERRED TO [facility] FOR HLOC. REPORT GIVEN TO 2 ELECTRIC LOCOMOTIVE CRANE OPERATOR. PRIOR NURSING REPORT GIVEN TO TO MILTON AT [facility]. PATIENT WILL BE IN ROOM #8207. DILAUDID PRN GIVEN PRIOR TO TRANSFER FOR C/O INCREASED PAIN. APTT RESULT STILL PENDING - WILL CALL AND UPDATE RN AT [facility]. CONTINUES WITH 2 IV SITES BOTH INTACT AND PATENT. ALL PAPERWORK SIGNED BY PATIENT. ALL BELONGINGS SENT WITH PATIENT. VS @ TIME OF TRANSFER: BP 144/75 HR 82 RR 18 T 97.6 O2 SAT 99% ON ROOM AIR. PATIENT LEFT VIA GURNEY AND 2 ELECTRIC LOCOMOTIVE CRANE OPERATOR @ APPROX. 20:00.
--- NOTE | 2021-09-21 20:20 | NUR ---
MS/RN NOTE CALLED [facility] AND SPOKE TO MAYI COPPOLA WHO WILL BE TAKING CARE OF PATIENT. UPDATED RN ON CURRENT HEPARIN DRIP DOSE AND PENDING APTT. ENDORSED PATIENT HAVING PRN DILAUDID PRIOR TO TRANSFER. LEFT PHONE NUMBER FOR RN IF ANY QUESTIONS ARISE.
[2021-09-21] MEDS ORDERED: PIPERACILLIN /TAZOBACTAM 3.375 G in IV D5W 100 ML IV SCH (21:00)
[2021-09-22] MEDS ORDERED: VANCOMYCIN 1 GM in IV D5W 250 ML IV SCH (02:00)
== END 2021-09-21 20:00 | disposition short-term general hospital (02) | DRG 720 ==
LOC: ER 16:25 → MED 20:29
PROVIDERS: ADMIT Hospitalist; ATTEND Internal Medicine
DX: A40.0 Sepsis due to streptococcus, group A (principal); M72.6 Necrotizing fasciitis; E43 Unspecified severe protein-calorie malnutrition; J18.9 Pneumonia, unspecified organism; J90 Pleural effusion, not elsewhere classified; I82.622 Acute embolism and thrombosis of deep veins of left upper extremity; E87.1 Hypo-osmolality and hyponatremia; E88.09 Other disorders of plasma-protein metabolism, not elsewhere classified; E86.0 Dehydration; R73.9 Hyperglycemia, unspecified; L03.114 Cellulitis of left upper limb; Z20.822 Contact with and (suspected) exposure to COVID-19; D50.9 Iron deficiency anemia, unspecified; B95.0 Streptococcus, group A, as the cause of diseases classified elsewhere; M60.9 Myositis, unspecified; Z59.00 Homelessness unspecified; Z86.16 Personal history of COVID-19; J98.11 Atelectasis; F17.200 Nicotine dependence, unspecified, uncomplicated; F12.90 Cannabis use, unspecified, uncomplicated; F15.10 Other stimulant abuse, uncomplicated; E86.1 Hypovolemia
CPT/HCPCS: 36415; 71045-TC; 73060-TC; 73090-TC; 73218-TC; 80048-TC; 80053-TC; 80076-TC; 80202-TC; 82550-TC; 82962-TC; 83605-TC; 83735-TC; 83880; 84100-TC; 84484-TC; 85025-TC; 85610-TC; 85730-TC; 87040-TC; 87081-TC; 87186-TC; 93971-TC; C9803; G0378; J0696; J1170; J1644; J1650; J1885; J2270; J2405; J2543; J3370; J3490; J7030; J7040; J7060